=== PATIENT | female | born 2000 | race African-American/Black ===

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

== ENCOUNTER 2020-03-27 14:38 | Emergency (ER) | payer SELFPAY ==
[~2020-03-27] VITALS: Ht 160 cm; Wt 74.7 kg
[~2020-03-27 14:38] MED LIST: NITR100C62 PO
[2020-03-27 14:41] VITALS: BP 128/58
--- NOTE | 2020-03-27 14:49 | PHYS DOC ---
Past Medical History Past Medical History: No Pertinent History Past Surgical History: No Surgical History Smoking Status: Never Smoker Alcohol Use: None Drug Use: None General Adult EDM: Chief Complaint: SEXUALLY TRANSMITTED DISEASE HPI: HPI: Patient is a 19 year old female who presents stating her boyfriend just informed her he was positive for gonorrhea and chlamydia and patient believes she has both diseases, she reports vaginal discharge since January. Denies any chance she is and is requesting treatment Review of Systems: Review of Systems: Constitutional: Denies fever or chills. [] GI: Reports vaginal discharge, concern for STD. Denies abdominal pain, nausea, vomiting, bloody stools or diarrhea. [] : Denies dysuria. [] Musculoskeletal: Denies back pain or joint pain. [] Integument: Denies rash. [] Neurologic: Denies headache, focal weakness or sensory changes. [] Psychiatric: Denies depression or anxiety. [] Heart Score: Risk Factors: Risk Factors: DM, Current or recent (<one month) smoker, HTN, HLP, family history of CAD, obesity. Risk Scores: Score 0 - 3: 2.5% MACE over next 6 weeks - Discharge Home Score 4 - 6: 20.3% MACE over next 6 weeks - Admit for Clinical Observation Score 7 - 10: 72.7% MACE over next 6 weeks - Early Invasive Strategies Allergies: Allergies: Allergies Coded Allergies Type Severity Reaction Last Updated Verified No Known Drug Allergies 03/27/20 No Physical Exam: PE: Constitutional: Well developed, well nourished, no acute distress, non-toxic appearance. [] Abdomen: Bowel sounds normal, soft, no tenderness, no masses, no pulsatile masses. [] pelvic exam deferred per patient's choice Skin: Warm, dry, no erythema, no rash. [] Back: No tenderness, no CVA tenderness. [] Extremities: No tenderness, no cyanosis, no clubbing, ROM intact, no edema. [] Neurologic: Alert and oriented X 3, normal motor function, normal sensory function, no focal deficits noted. [] Psychologic: Affect normal, judgement normal, mood normal. [] EKG: EKG: [] Radiology/Procedures: Radiology/Procedures: [] Course & Med Decision Making: Course & Med Decision Making Pertinent Labs and Imaging studies reviewed. (See chart for details) This is a 19-year-old female patient presenting to the ED today with STD concern. Patient reports the boyfriend is positive for gonorrhea and chlamydia. Patient has vaginal discharge. She is requesting treatment. She was given the new standard STD treatment and discharge to home with education on prevention of STDs. Discharged with doxycycline Rx per the new treatment protocol for STDs Sukhi Disclaimer: Sukhi Disclaimer: This electronic medical record was generated, in whole or in part, using a voice recognition dictation system. Departure Departure Impression: Primary Impression: Concern about STD in female without diagnosis Disposition: 01 DC HOME SELF CARE/HOMELESS Condition: STABLE Referrals: NO PCP (PCP) Follow-up with the health department for further STD concerns Patient Instructions: Sexually Transmitted Disease, [id number] Additional Instructions: You were treated for sexually transmitted diseases. Ensure you fill the prescription for doxycycline and take it to completion. Follow-up with the health department for further STD concerns. Do not have intercourse for a week. Use protection at all times. Let all your partners know you were treated for STDs and ask them to seek treatment Scripts Doxycycline Hyclate (DOXYCYCLINE HYCLATE) 100 Mg Tablet 1 TAB PO BID, #14 TAB Prov: FABIOLA POMPA APRN 03/27/20 FABIOLA POMPA APRN Mar 27, 2020 14:49
[2020-03-27] MEDS ORDERED: DOXY100T PO (14:53)
[2020-03-27] MEDS ORDERED: metroNIDAZOLE 500 MG TABLET PO ONE (15:00)
[2020-03-27] MEDS ORDERED: cefTRIAXone IM 250 MG VIAL IM ONE (15:00)
== END 2020-03-27 15:05 | disposition home or self-care (01) ==
LOC: ER 14:38
DX: N89.8 Other specified noninflammatory disorders of vagina (principal); Z20.2 Contact with and (suspected) exposure to infections with a predominantly sexual mode of transmission
CPT/HCPCS: 96372; 99283; J0696